=== PATIENT | female | born 1940 | race Caucasian/White ===

== ENCOUNTER 2020-09-14 18:32 | Emergency (ER) | payer MEDICARE, OTHER ==
[2020-09-14] MEDS ORDERED: Sodium Chloride 0.9% 10 ML Syringe FLUSH PRN (18:36)
--- NOTE | 2020-09-14 19:05 | EDM.PDOC ---
ED HPI GENERAL MEDICAL PROBLEM - General Stated Complaint: POSS STROKE Time Seen by Provider: 09/14/20 18:32 Source of Information: Reports: Patient History Limitations: Reports: No Limitations - History of Present Illness INITIAL COMMENTS - FREE TEXT/NARRATIVE: Pt. presents to ER with complaints of R sided lower extremity numbness, weakness, and R sided facial numbness. Pt. states that this started at approx. 1750. She states that the facial numbness started first. Pt. was on the toilet during the onset of symptoms. She states that she went to get off the toilet and she had lack of strength in her R leg. She was able to ambulate about 10 feet while holding onto the wall and her states that he had to help her stand and walk. EMS was summoned. They state that she was significantly weak in the R leg and was unable to fully stand on her own power. She had no facial droop or smile asymmetry, but she does complain of some numbness to the R side of her face. Denies any history of cerebrovascular disease, cancer, or other intracranial pathology. She denies any chest pain, shortness of breath, or lightheadedness. No palpitations. Only other complaint is of mild headache, starting since she got to ER. Onset: Today Onset Date: 09/14/20 Onset Time: 17:50 Location: Reports: Face, Lower Extremity, Right - Related Data Allergies Allergy/AdvReac Type Severity Reaction Status Date / Time oxycodone HCl [From Percodan] Allergy Cannot Verified 05/07/15 11:08 Remember oxycodone terephthalate Allergy Cannot Verified 05/07/15 11:08 [From Percodan] Remember pineapple Allergy Cannot Verified 05/07/15 11:08 Remember Sulfa (Sulfonamide Allergy Itching Verified 05/07/15 11:08 Antibiotics) hairspray Allergy Cannot Uncoded 05/07/15 11:08 Remember Home Meds: Home Meds Aspirin [Adult Low Dose Aspirin EC] 1 tab PO Q2D 01/06/15 [History] Calcium Carbonate/Vitamin D3 [Calcium 600 + Vit D 400] 1 each PO BID 01/06/15 [History] Cholecalciferol (Vitamin D3) [Vitamin D] 1,000 unit PO DAILY 01/06/15 [History] Lisinopril 20 mg PO DAILY 01/06/15 [History] Metoprolol Tartrate [Lopressor] 50 mg PO BID 01/06/15 [History] Denosumab [Prolia] 60 mg SUBCNJ Q6M 09/14/20 [History] Esomeprazole [NexIUM] 20 mg PO DAILY 09/14/20 [History] Estrogens, Conjugated [Premarin] 0.5 g TOP DAILY 09/14/20 [History] L.acidoph,Paracasei, B.lactis [Probiotic] 1 each PO DAILY 09/14/20 [History] Lactase [Lactaid] 3,000 unit PO DAILY 09/14/20 [History] Loratadine 10 mg PO DAILY 09/14/20 [History] Tetrahydrozoline HCl [Eye Drops] 1 drop OP BID 09/14/20 [History] ED ROS GENERAL - Review of Systems Review Of Systems: See Below Constitutional: Reports: No Symptoms. Denies: Fever, Chills, Malaise, Weakness HEENT: Reports: No Symptoms Respiratory: Reports: No Symptoms Cardiovascular: Reports: No Symptoms Endocrine: Reports: No Symptoms GI/Abdominal: Reports: No Symptoms : Reports: No Symptoms Musculoskeletal: Reports: No Symptoms Skin: Reports: No Symptoms Neurological: Reports: Paresthesia, Other (R lower extremity weakness and paresthesia, R sided facial paresthesia) Psychiatric: Reports: No Symptoms Hematologic/Lymphatic: Reports: No Symptoms Immunologic: Reports: No Symptoms ED EXAM, GENERAL - Physical Exam Exam: See Below Exam Limited By: No Limitations General Appearance: Alert, WD/WN, No Apparent Distress Eye Exam: Bilateral Eye: EOMI, Normal Fundi, Normal Inspection, PERRL Throat/Mouth: Normal Inspection, Normal Lips, Normal Teeth, Normal Gums, Normal Oropharynx, Normal Voice, No Airway Compromise Head: Atraumatic, Normocephalic Neck: Normal Inspection, Supple, Non-Tender, Full Range of Motion Respiratory/Chest: No Respiratory Distress, Lungs Clear, Normal Breath Sounds, No Accessory Muscle Use, Chest Non-Tender Cardiovascular: Normal Peripheral Pulses, Regular Rate, Rhythm, No Edema, No JVD, No Murmur Peripheral Pulses: 4+: Radial (L), Posterior Tibial (L), Posterior Tibial (R) GI/Abdominal: Soft, Non-Tender, No Mass (Female) Exam: Deferred Rectal (Female) Exam: Deferred Back Exam: Normal Inspection, Full Range of Motion Extremities: Normal Inspection, Normal Range of Motion, Non-Tender, No Pedal Edema, Normal Capillary Refill Neurological: Alert, Other (NIH stroke scale 3. Weakness in R leg resolving. Was able to stand and ambulate on her own power, albeit slowly.) Psychiatric: Normal Affect, Normal Mood Skin Exam: Warm, Dry, Intact, Normal Color, No Rash Lymphatic: No Adenopathy Course - Orders/Labs/Meds Orders: Active Orders 24 hr Category Date Time Status Blood Glucose Check, Bedside [RC] ONETIME Care 09/14/20 18:37 Active EKG Documentation Completion [RC] STAT Care 09/14/20 18:36 Active CORONAVIRUS COVID-19 RAPID [MOLEC] Stat Lab 09/14/20 19:33 Received Sodium Chloride 0.9% [Saline Flush] Med 09/14/20 18:36 Active 10 ml FLUSH ASDIRECTED PRN Peripheral IV Insertion Adult [OM.PC] Routine Oth 09/14/20 18:36 Ordered Medication Orders Sodium Chloride (Saline Flush) 10 ml FLUSH ASDIRECTED PRN PRN Reason: Keep Vein Open Labs: Laboratory Tests 09/14/20 09/14/20 09/14/20 Range/Units 18:48 18:48 18:48 WBC 4.2 (4.0-10.0) x10^3/uL RBC 4.57 (4.00-5.50) x10^6/uL Hgb 13.4 (12.0-16.0) g/dL Hct 40.6 (33.0-47.0) % MCV 88.8 (78.0-93.0) fL MCH 29.3 (26.0-32.0) pg MCHC 33.0 (32.0-36.0) g/dL RDW Coeff of Chanel 12.9 (10.0-15.0) % Plt Count 109 L (130-400) x10^3/uL Neut % (Auto) 59.6 (50.0-80.0) % Lymph % (Auto) 28.5 (25.0-50.0) % [place] % (Auto) 8.1 (2.0-11.0) % Eos % (Auto) 3.6 (0.0-4.0) % Baso % (Auto) 0.2 (0.2-1.2) % PT 10.8 (9.5-12.3) SEC INR 1.0 L (2.0-3.5) Sodium 141 (136-145) mmol/L Potassium 4.0 (3.5-5.1) mmol/L Chloride 104 (98-107) mmol/L Carbon Dioxide 30 (21-32) mmol/L Anion Gap 11.0 (10-20) mmol/L BUN 10 (7-18) mg/dL Creatinine 0.9 (0.55-1.02) mg/dL Est Cr Clr Drug Dosing TNP Estimated GFR (MDRD) > 60 Glucose 148 H (74-106) mg/dL Calcium 8.8 (8.5-10.1) mg/dL Corrected Calcium 9.04 (8.5-10.1) mg/dL Total Bilirubin 0.3 (0.2-1.0) mg/dL AST 18 (15-37) U/L ALT 24 (14-59) U/L Alkaline Phosphatase 46 (46-116) U/L POC Troponin I (0.00-0.08) ng/mL C-Reactive Protein 0.6 (<=0.9) mg/dL Total Protein 6.8 (6.4-8.2) g/dL Albumin 3.7 (3.4-5.0) g/dL Globulin 3.1 Albumin/Globulin Ratio 1.19 TSH, Ultra Sensitive 7.408 H (0.358-3.74) uIU/mL 09/14/20 Range/Units 18:48 WBC (4.0-10.0) x10^3/uL RBC (4.00-5.50) x10^6/uL Hgb (12.0-16.0) g/dL Hct (33.0-47.0) % MCV (78.0-93.0) fL MCH (26.0-32.0) pg MCHC (32.0-36.0) g/dL RDW Coeff of Chanel (10.0-15.0) % Plt Count (130-400) x10^3/uL Neut % (Auto) (50.0-80.0) % Lymph % (Auto) (25.0-50.0) % [place] % (Auto) (2.0-11.0) % Eos % (Auto) (0.0-4.0) % Baso % (Auto) (0.2-1.2) % PT (9.5-12.3) SEC INR (2.0-3.5) Sodium (136-145) mmol/L Potassium (3.5-5.1) mmol/L Chloride (98-107) mmol/L Carbon Dioxide (21-32) mmol/L Anion Gap (10-20) mmol/L BUN (7-18) mg/dL Creatinine (0.55-1.02) mg/dL Est Cr Clr Drug Dosing Estimated GFR (MDRD) Glucose (74-106) mg/dL Calcium (8.5-10.1) mg/dL Corrected Calcium (8.5-10.1) mg/dL Total Bilirubin (0.2-1.0) mg/dL AST (15-37) U/L ALT (14-59) U/L Alkaline Phosphatase (46-116) U/L POC Troponin I 0.01 (0.00-0.08) ng/mL C-Reactive Protein (<=0.9) mg/dL Total Protein (6.4-8.2) g/dL Albumin (3.4-5.0) g/dL Globulin Albumin/Globulin Ratio TSH, Ultra Sensitive (0.358-3.74) uIU/mL Meds: Medications Generic Name Dose Route Start Last Admin Trade Name Freq PRN Reason Stop Dose Admin Sodium Chloride 10 ml 09/14/20 18:36 Saline Flush FLUSH ASDIRECTED PRN Keep Vein Open Departure - Departure Time of Disposition: 19:41 Disposition: DC/Tfer to Acute Hospital 02 Clinical Impression: TIA (transient ischemic attack) - Discharge Information Referrals: Patti Sánchez MD [Primary Care Provider] - Forms: Interfacility Transfer EMTALA - Problem List Review Problem List Initiated/Reviewed/Updated: Yes - My Orders Last 24 Hours: My Active Orders 09/14/20 18:36 EKG Documentation Completion [RC] STAT Sodium Chloride 0.9% [Saline Flush] 10 ml FLUSH ASDIRECTED PRN Peripheral IV Insertion Adult [OM.PC] Routine 09/14/20 18:37 Blood Glucose Check, Bedside [RC] ONETIME 11/01/20 19:33 CORONAVIRUS COVID-19 RAPID [MOLEC] Stat - Assessment/Plan Last 24 Hours: My Active Orders 09/14/20 18:36 EKG Documentation Completion [RC] STAT Sodium Chloride 0.9% [Saline Flush] 10 ml FLUSH ASDIRECTED PRN Peripheral IV Insertion Adult [OM.PC] Routine 09/14/20 18:37 Blood Glucose Check, Bedside [RC] ONETIME 09/14/20 19:33 CORONAVIRUS COVID-19 RAPID [MOLEC] Stat Plan: Pt. initial NIH scale was 3. Please see attached. Pt. was able to ambulate on her own power which is an improvement from the onset of symptoms. Discussed findings with Jorge. Based on these improving symptoms, decision was made not to administer TPA. This was discussed with patient and who concur with plan of care. Pt. was blood pressure did improve and was in the 170/80 range (initially was greater than 200/systolic). She continued to have paresthesia in the R lower extremity and face.
--- NOTE | 2020-09-14 19:06 | CT ---
[id number] CT/CT Head WO IV EXAM: CT Head WO IV CLINICAL DATA: STROKE CODE COMPARISON STUDY: None FINDINGS: No intracranial hemorrhage, extra-axial fluid collection, mass, or acute ischemia. Generalized parenchymal atrophy with scattered areas of nonspecific white matter disease, commonly seen as sequela of chronic microvascular ischemia. Soft tissues are unremarkable. Paranasal sinuses and mastoid air cells are clear. IMPRESSION: No acute intracranial findings. Report called at time dictation. Yash Reid DO 09/16/20 1913 Thank you for allowing us to participate in the care of your patient.
[2020-09-14 19:26] LABS: CHLORIDE,CL 104 mmol/L (98-107); SODIUM,NA 141 mmol/L (136-145)
== END 2020-09-14 20:35 | disposition short-term general hospital (02) ==
LOC: VM.ED 18:32
DX: G45.9 Transient cerebral ischemic attack, unspecified (principal); Z88.5 Allergy status to narcotic agent; Z91.018 Allergy to other foods; Z88.2 Allergy status to sulfonamides; Z79.82 Long term (current) use of aspirin; Z79.899 Other long term (current) drug therapy
CPT/HCPCS: 36415; 70450; 80053; 84443; 84484; 85025; 85610; 86140; 93005; 99283; 99285-25; U0002